=== PATIENT | male | born 1930 | race Caucasian/White ===

== ENCOUNTER 2017-08-08 08:05 | Observation (INO) | payer MEDICARE ==
[~2017-08-08] VITALS: Ht 175.3 cm; Wt 73.8 kg
[~2017-08-08 08:05] MED LIST: AEC81 PO; AMIODARONE HCL 150 MG in DEXTROSE 5%-WATER 100 ML IV SCH; AMIODARONE HCL 900 MG in DEXTROSE 5%-WATER 500 ML IV NR; ATOR10 PO; CARV25TA PO; CHOL100040 PO; DRON400T2 PO; FURO20TA4 PO; MIDO5TAB PO; OMEP20TA25 PO; SERT100T12 PO; WARF-57 PO
[2017-08-08] MEDS ORDERED: AMIODARONE HCL 900 MG in DEXTROSE 5%-WATER 500 ML IV NR (08:55)
[2017-08-08 08:56] LABS: EOSINOPHILS % (AUTO) 5.1 % (0.0-8.0); HEMATOCRIT 33.5 % (42-54); LYMPHOCYTES % (AUTO) 11.3 % (21.0-51.0); MEAN CORPUSCULAR HEMOGLOBIN 30.8 pg (27.0-33.0); MEAN CORPUSCULAR HGB CONC 32.7 g/dL (32.0-36.0); MEAN CORPUSCULAR VOLUME 94.1 fL (79-99); NEUTROPHILS % (AUTO) 80.6 % (40.0-77.0); PLATELET COUNT (AUTO) 341 K/uL (130-400); RED BLOOD CELL COUNT(AUTO) 3.55 MIL/uL (4.50-6.20); WHITE BLOOD COUNT (AUTO) 10.1 K/uL (4.8-10.8)
[2017-08-08 09:02] LABS: CREATININE 1.4 mg/dL (0.5-1.5); POTASSIUM 3.5 mmol/L (3.5-5.1)
[2017-08-08 09:05] LABS: PARTIAL THROMBOPLASTIN TIME 47.1 SEC (26.3-35.5)
[2017-08-08 09:08] LABS: INR 4.01 (0.85-1.15)
[2017-08-08 09:13] LABS: ALBUMIN 2.8 g/dL (3.5-5.0); BILIRUBIN,TOTAL 0.8 mg/dL (0.2-1.0); THYROID STIMULATING HORMONE 4.31 uIU/mL (0.36-3.74); TOTAL PROTEIN, SERUM 6.3 g/dL (6.0-8.3)
[2017-08-08] MEDS ORDERED: SODIUM CHLORIDE 0.9% 10 ML VIAL IVP SCH (09:15)
[2017-08-08] MEDS ORDERED: ZOLPIDEM TARTRATE 5 MG TAB PO PRN (09:15)
[2017-08-08] MEDS ORDERED: ACETAMINOPHEN 325 MG TAB PO PRN ×4 (09:15→10:15)
[2017-08-08] MEDS ORDERED: GUAIFENESIN-DM 200/20 MG 10 ML PO PRN (10:15)
[2017-08-08] MEDS ORDERED: LACTULOSE 20 GM/30 ML UDCUP PO PRN (10:15)
[2017-08-08] MEDS ORDERED: MAG HYDROX/AL HYDROX/SIMETH ES 30 ML SUSP UDCUP PO PRN (10:15)
[2017-08-08] MEDS ORDERED: NITROGLYCERIN 0.4 MG SL TAB SL PRN (10:15)
[2017-08-08] MEDS ORDERED: ONDANSETRON HCL 4 MG/2 ML VIAL IV PRN (10:15)
[2017-08-08] MEDS ORDERED: FAMOTIDINE/PF 20 MG/2 ML VIAL IV SCH (21:00)
[2017-08-08 21:35] VITALS: BP 127/72
[2017-08-09] VITALS (12 sets, daily range): BP systolic 121–147; BP diastolic 59–95
[2017-08-09 04:32] LABS: INR 3.45 (0.85-1.15)
[2017-08-09 04:45] LABS: CREATININE 1.4 mg/dL (0.5-1.5); MAGNESIUM 1.8 mg/dL (1.80-2.40); PHOSPHORUS 2.9 mg/dL (2.5-4.9); POTASSIUM 3.7 mmol/L (3.5-5.1)
[2017-08-09 04:54] LABS: PROTHROMBIN TIME 35.4 SEC (9.6-11.6)
[2017-08-09] MEDS ORDERED: SODIUM CHLORIDE 0.9% 1000ML 1,000 ML IV ONE (08:45)
[2017-11-06] MEDS ORDERED: CARV25TA PO (11:06)
[2017-11-06] MEDS ORDERED: WARF-57 PO (11:06)
[2017-11-06] MEDS ORDERED: WARF2.5T85 PO (11:06)
[2017-11-06] MEDS ORDERED: AMIO200T2 PO (11:06)
== END 2017-08-09 18:00 | disposition home or self-care (01) ==
LOC: EDH 08:05 → EDHIP 08:06 → 2DH 21:27
PROVIDERS: ADMIT Family Medicine; ATTEND Family Medicine
DX: I48.1 Persistent atrial fibrillation (principal); D68.69 Other thrombophilia; Z79.01 Long term (current) use of anticoagulants; I25.10 Atherosclerotic heart disease of native coronary artery without angina pectoris; I10 Essential (primary) hypertension; E78.5 Hyperlipidemia, unspecified; Z82.49 Family history of ischemic heart disease and other diseases of the circulatory system; K21.9 Gastro-esophageal reflux disease without esophagitis; Z95.5 Presence of coronary angioplasty implant and graft; Z95.0 Presence of cardiac pacemaker; Z87.891 Personal history of nicotine dependence
CPT/HCPCS: 36415 ×2; 80048; 80053; 83735; 84100; 84443; 85025; 85610 ×2; 85730; 93005 ×2; 96374; 99285; G0378 ×34; J0282 ×2; J3490; J7030; J7060 ×2

== ENCOUNTER → 2017-11-06 | Outpatient (CLI) | payer MEDICARE ==
[~2017-11-06] VITALS: Ht 177.8 cm; Wt 71.5 kg
[~2017-11-06] MED LIST changes: +AMIO200T5 PO; -AMIODARONE HCL 150 MG in DEXTROSE 5%-WATER 100 ML IV SCH; -AMIODARONE HCL 900 MG in DEXTROSE 5%-WATER 500 ML IV NR; +CEFAZOLIN SODIUM 1 GM VIAL IVP SCH; -DRON400T2 PO; +SODIUM CHLORIDE 0.9% 500ML 500 ML IV SCH; +WARF2.5T85 PO
[2017-11-06 09:35] VITALS: BP 119/67
[2017-11-06 09:52] LABS: BASOPHILS % (AUTO) 0.9 % (0.0-5.0); EOSINOPHILS % (AUTO) 6.5 % (0.0-8.0); HEMATOCRIT 36.6 % (42-54); LYMPHOCYTES % (AUTO) 8.1 % (21.0-51.0); MEAN CORPUSCULAR HEMOGLOBIN 29.7 pg (27.0-33.0); MEAN CORPUSCULAR VOLUME 90.2 fL (79-99); MONOCYTES % (AUTO) 0.8 % (3.0-13.0); NEUTROPHILS % (AUTO) 83.7 % (40.0-77.0); PLATELET COUNT (AUTO) 498 K/uL (130-400); RED BLOOD CELL COUNT(AUTO) 4.05 MIL/uL (4.50-6.20); RED CELL DISTRIBUTION WIDTH 14.7 % (11.0-15.5); WHITE BLOOD COUNT (AUTO) 16.4 K/uL (4.8-10.8)
[2017-11-06 10:02] LABS: CREATININE 1.3 mg/dL (0.5-1.5); POTASSIUM 3.7 mmol/L (3.5-5.1)
[2017-11-06 10:06] LABS: INR 1.86 (0.85-1.15); PARTIAL THROMBOPLASTIN TIME 39.9 SEC (26.3-35.5); PROTHROMBIN TIME 19.3 SEC (9.6-11.6)
== END | disposition home or self-care (01) ==
LOC: DAH 10:00 → EDSTATUS 11-08 09:00
PROVIDERS: ATTEND Internal Medicine Cardiovascular Disease
DX: Z01.818 Encounter for other preprocedural examination (principal); Z45.02 Encounter for adjustment and management of automatic implantable cardiac defibrillator; I25.5 Ischemic cardiomyopathy; R79.1 Abnormal coagulation profile
CPT/HCPCS: 36415; 80048; 85025; 85610; 85730; 93005

== ENCOUNTER → 2017-11-20 | Outpatient (CLI) | payer MEDICARE ==
[~2017-11-20] VITALS: Ht 175.3 cm; Wt 71.8 kg
[~2017-11-20] MED LIST changes: -CEFAZOLIN SODIUM 1 GM VIAL IVP SCH; -CHOL100040 PO; -SODIUM CHLORIDE 0.9% 500ML 500 ML IV SCH
[2017-11-20 08:54] LABS: BASOPHILS % (AUTO) 0.3 % (0.0-5.0); EOSINOPHILS % (AUTO) 2.1 % (0.0-8.0); HEMATOCRIT 35.3 % (42-54); LYMPHOCYTES % (AUTO) 4.2 % (21.0-51.0); MEAN CORPUSCULAR HEMOGLOBIN 29.4 pg (27.0-33.0); MEAN CORPUSCULAR HGB CONC 33.2 g/dL (32.0-36.0); MEAN CORPUSCULAR VOLUME 88.7 fL (79-99); MONOCYTES % (AUTO) 0.2 % (3.0-13.0); NEUTROPHILS % (AUTO) 93.2 % (40.0-77.0); PLATELET COUNT (AUTO) 572 K/uL (130-400); RED BLOOD CELL COUNT(AUTO) 3.98 MIL/uL (4.50-6.20); RED CELL DISTRIBUTION WIDTH 14.4 % (11.0-15.5); WHITE BLOOD COUNT (AUTO) 25.9 K/uL (4.8-10.8)
[2017-11-20 09:01] LABS: CREATININE 1.3 mg/dL (0.5-1.5); POTASSIUM 3.3 mmol/L (3.5-5.1)
[2017-11-20 09:06] LABS: INR 2.07 (0.85-1.15); PARTIAL THROMBOPLASTIN TIME 39.5 SEC (26.3-35.5); PROTHROMBIN TIME 21.4 SEC (9.6-11.6)
[2017-11-20 09:16] VITALS: BP 114/59
== END | disposition home or self-care (01) ==
LOC: EDSTATUS 08:00 → DAH 10:00
PROVIDERS: ATTEND Internal Medicine Cardiovascular Disease
DX: Z45.02 Encounter for adjustment and management of automatic implantable cardiac defibrillator (principal); I25.5 Ischemic cardiomyopathy; I10 Essential (primary) hypertension; E78.5 Hyperlipidemia, unspecified; K21.9 Gastro-esophageal reflux disease without esophagitis
CPT/HCPCS: 36415; 80048; 85025; 85610; 85730

== ENCOUNTER 2017-11-24 17:49 | Inpatient (IN) | payer MEDICARE ==
[~2017-11-24] VITALS: Ht 177.8 cm; Wt 67.9 kg
[2017-11-24 18:08] LABS: BASOPHILS % (AUTO) 0.6 % (0.0-5.0); EOSINOPHILS % (AUTO) 0.5 % (0.0-8.0); HEMATOCRIT 37.5 % (42-54); LYMPHOCYTES % (AUTO) 2.3 % (21.0-51.0); MEAN CORPUSCULAR HEMOGLOBIN 28.9 pg (27.0-33.0); MEAN CORPUSCULAR HGB CONC 32.7 g/dL (32.0-36.0); MEAN CORPUSCULAR VOLUME 88.3 fL (79-99); MONOCYTES % (AUTO) 0.3 % (3.0-13.0); NEUTROPHILS % (AUTO) 96.3 % (40.0-77.0); RED BLOOD CELL COUNT(AUTO) 4.25 MIL/uL (4.50-6.20); RED CELL DISTRIBUTION WIDTH 14.4 % (11.0-15.5)
[2017-11-24 18:14] LABS: PLATELET COUNT (AUTO) 712 K/uL (130-400)
[2017-11-24 18:22] LABS: CREATININE 1.6 mg/dL (0.5-1.5); POTASSIUM 3.8 mmol/L (3.5-5.1)
[2017-11-24 18:34] LABS: LYMPHOCYTES % (MANUAL) 1 % (22-44); PLATELET MORPHOLOGY COMMENT MARKED INCREASED; REACTIVE LYMPHOCYTES 1 % (0-0); SEGMENTED NEUTROPHILS % 98 % (40-70)
[2017-11-24 18:35] LABS: ALBUMIN 2.8 g/dL (3.5-5.0); BILIRUBIN,TOTAL 0.9 mg/dL (0.2-1.0); CREATINE KINASE MB 1.3 ng/mL (0.5-3.6); TOTAL PROTEIN, SERUM 6.9 g/dL (6.0-8.3)
[2017-11-24] MEDS ORDERED: CEFTRIAXONE SODIUM 1 GM ONE (19:28)
[2017-11-24] MEDS ORDERED: SODIUM CHLORIDE 0.9% 50 ML IV ONE (19:28)
[2017-11-24] MEDS ORDERED: LEVOFLOXACIN 500 MG/D5W 100 ML 100 ML ONE (19:28)
[2017-11-24 21:09] LABS: APPEARANCE,URINE Clear (CLEAR); BILIRUBIN,URINE Small (NEGATIVE); COLOR,URINE Dark Yellow (YELLOW); GLUCOSE, URINE (UA) Negative (NEGATIVE); KETONES,URINE Negative (NEGATIVE); LEUKOCYTE ESTERASE ,URINE Negative (NEGATIVE); NITRATE,URINE Negative (NEGATIVE); OCCULT BLOOD,URINE Negative (NEGATIVE); PROTEIN,URINE Negative (NEGATIVE)
[2017-11-24 21:17] LABS: BACTERIA,URINE None Seen /HPF (None Seen); RBC,URINE None Seen /HPF (0-1); SQUAMOUS EPITHELIAL CELL,UR 0-2 /HPF (0-2); WBC,URINE None Seen /HPF (0-1)
[2017-11-24 21:18] LABS: HYALINE CASTS, URINE >100 /LPF (0-1 /LPF)
[2017-11-24] MEDS ORDERED: ACETAMINOPHEN 325 MG TAB PO PRN (21:30)
[2017-11-24 22:00] VITALS: BP 126/81
[2017-11-24] MEDS ORDERED: WARF2.5T85 PO (22:31)
[2017-11-24] MEDS ORDERED: FURO20TA4 PO (22:31)
[2017-11-24 23:33] VITALS: BP 131/68
[2017-11-25 04:02] VITALS: BP 136/70
[2017-11-25 04:36] LABS: HEMATOCRIT 33.8 % (42-54); MEAN CORPUSCULAR HEMOGLOBIN 29.4 pg (27.0-33.0); MEAN CORPUSCULAR HGB CONC 32.8 g/dL (32.0-36.0); MEAN CORPUSCULAR VOLUME 89.5 fL (79-99); PLATELET COUNT (AUTO) 591 K/uL (130-400); RED BLOOD CELL COUNT(AUTO) 3.78 MIL/uL (4.50-6.20); RED CELL DISTRIBUTION WIDTH 14.7 % (11.0-15.5)
[2017-11-25 04:43] LABS: WHITE BLOOD COUNT (AUTO) 37.3 K/uL (4.8-10.8)
[2017-11-25 04:46] LABS: ALBUMIN 2.4 g/dL (3.5-5.0); BILIRUBIN,TOTAL 0.8 mg/dL (0.2-1.0); CREATININE 1.4 mg/dL (0.5-1.5); POTASSIUM 3.8 mmol/L (3.5-5.1); TOTAL PROTEIN, SERUM 6.1 g/dL (6.0-8.3)
[2017-11-25 05:14] LABS: B-TYPE NATRIURETIC PEPTIDE 1770 pg/mL (0-100)
[2017-11-25 07:17] VITALS: BP 134/73
[2017-11-25] MEDS: FUROSEMIDE 10 MG/ML 2ML VIAL IVP SCH (08:06)
[2017-11-25] MEDS: ENOXAPARIN SODIUM 40 MG/0.4 ML SYRINGE SQ SCH (08:06)
[2017-11-25 11:25] VITALS: BP 133/72
[2017-11-25 16:45] VITALS: BP 138/71
[2017-11-25] MEDS ORDERED: CEFTRIAXONE SODIUM 1 GM IVP SCH (18:00)
[2017-11-25] MEDS ORDERED: FUROSEMIDE 10 MG/ML 4ML VIAL IV SCH (18:15)
[2017-11-25] MEDS ORDERED: LEVOFLOXACIN 500 MG/D5W 100 ML 100 ML IV SCH (19:00)
[2017-11-25 20:00] VITALS: BP 131/79
[2017-11-25] MEDS: ATORVASTATIN CALCIUM 20 MG TABLET PO SCH (21:03)
[2017-11-25] MEDS: SERTRALINE HCL 50 MG TABLET PO SCH (21:03)
[2017-11-25] MEDS: CARVEDILOL 12.5 MG TABLET PO SCH (21:07)
[2017-11-25] MEDS: WARFARIN SODIUM 2.5 MG TAB PO SCH (21:08)
[2017-11-25 23:56] VITALS: BP 127/71
[2017-11-26 04:00] VITALS: BP 122/62
[2017-11-26 05:06] LABS: BASOPHILS % (AUTO) 0.2 % (0.0-5.0); EOSINOPHILS % (AUTO) 0.2 % (0.0-8.0); HEMATOCRIT 32.8 % (42-54); LYMPHOCYTES % (AUTO) 1.8 % (21.0-51.0); MEAN CORPUSCULAR HEMOGLOBIN 29.8 pg (27.0-33.0); MEAN CORPUSCULAR HGB CONC 33.5 g/dL (32.0-36.0); MEAN CORPUSCULAR VOLUME 89.1 fL (79-99); MONOCYTES % (AUTO) 0.2 % (3.0-13.0); NEUTROPHILS % (AUTO) 97.6 % (40.0-77.0); PLATELET COUNT (AUTO) 639 K/uL (130-400); RED BLOOD CELL COUNT(AUTO) 3.68 MIL/uL (4.50-6.20); RED CELL DISTRIBUTION WIDTH 14.6 % (11.0-15.5)
[2017-11-26 05:20] LABS: WHITE BLOOD COUNT (AUTO) 40.2 K/uL (4.8-10.8)
[2017-11-26 05:47] LABS: BAND NEUTROPHILS % (MANUAL) 4 % (0-2); LYMPHOCYTES % (MANUAL) 2 % (22-44); MAN.DIFF COMMENT-IMPRESSION MANUAL DIFFERENTIAL; METAMYELOCYTES % 3 % (0-0); MYELOCYTES % 1 % (0-0); PLATELET MORPHOLOGY COMMENT INCREASED; SEGMENTED NEUTROPHILS % 90 % (40-70)
[2017-11-26 06:14] LABS: B-TYPE NATRIURETIC PEPTIDE 1980 pg/mL (0-100)
[2017-11-26] MEDS: FOLIC ACID 1 MG TABLET PO SCH (08:05)
[2017-11-26] MEDS: CARVEDILOL 12.5 MG TABLET PO SCH ×2 (08:05→22:00)
[2017-11-26] MEDS: AMIODARONE HCL 200 MG TABLET PO SCH (08:05)
[2017-11-26] MEDS: ASPIRIN 81 MG EC TAB PO SCH (08:05)
[2017-11-26] MEDS: CYANOCOBALAMIN (VITAMIN B-12) 1,000 MCG TABLET PO SCH (08:05)
[2017-11-26] MEDS: FUROSEMIDE 10 MG/ML 2ML VIAL IVP SCH (08:06)
[2017-11-26] MEDS: ENOXAPARIN SODIUM 40 MG/0.4 ML SYRINGE SQ SCH (08:06)
[2017-11-26 08:15] VITALS: BP 127/74
[2017-11-26 11:38] VITALS: BP 144/71
[2017-11-26] MEDS ORDERED: VANCOMYCIN PROTOCOL PER PHARMACY IV SCH (15:00)
[2017-11-26] MEDS ORDERED: CEFTAZIDIME 1GM+NS 50ML 50 ML IV SCH (15:30)
[2017-11-26] MEDS: CEFTAZIDIME PENTAHYDRATE 1 GM/VIAL IVP SCH (15:41)
[2017-11-26] MEDS: DOXYCYCLINE 100MG+NS 250ML 250 ML IV SCH (15:56)
[2017-11-26 16:41] VITALS: BP 136/79
[2017-11-26 20:03] VITALS: BP 137/70
[2017-11-26] MEDS ORDERED: VANCOMYCIN 1GM+NS 250ML 250 ML IV SCH (21:00)
[2017-11-26] MEDS ORDERED: CEFTRIAXONE SODIUM 1 GM IVP SCH (21:00)
[2017-11-26] MEDS: ATORVASTATIN CALCIUM 20 MG TABLET PO SCH (21:59)
[2017-11-26] MEDS: VANCOMYCIN 1GM+NS 250ML 250 ML IV SCH (21:59)
[2017-11-26] MEDS: SERTRALINE HCL 50 MG TABLET PO SCH (22:00)
[2017-11-26] MEDS: WARFARIN SODIUM 2.5 MG TAB PO SCH (22:00)
[2017-11-27] VITALS (7 sets, daily range): BP systolic 115–130; BP diastolic 56–65
[2017-11-27] MEDS: DOXYCYCLINE 100MG+NS 250ML 250 ML IV SCH ×2 (03:36→14:04)
[2017-11-27] MEDS: CEFTAZIDIME PENTAHYDRATE 1 GM/VIAL IVP SCH ×2 (04:00→16:00)
[2017-11-27 05:13] LABS: HEMATOCRIT 34.4 % (42-54); MEAN CORPUSCULAR HEMOGLOBIN 28.8 pg (27.0-33.0); MEAN CORPUSCULAR HGB CONC 32.8 g/dL (32.0-36.0); PLATELET COUNT (AUTO) 624 K/uL (130-400); RED CELL DISTRIBUTION WIDTH 14.5 % (11.0-15.5)
[2017-11-27 05:18] LABS: WHITE BLOOD COUNT (AUTO) 39.5 K/uL (4.8-10.8)
[2017-11-27 05:26] LABS: ALBUMIN 2.2 g/dL (3.5-5.0); BILIRUBIN,TOTAL 0.8 mg/dL (0.2-1.0); CREATININE 1.2 mg/dL (0.5-1.5)
[2017-11-27 05:36] LABS: BAND NEUTROPHILS % (MANUAL) 3 % (0-2); EOSINOPHILS % (MANUAL) 1 % (1-6); LYMPHOCYTES % (MANUAL) 1 % (22-44); MAN.DIFF COMMENT-IMPRESSION MANUAL DIFFERENTIAL; METAMYELOCYTES % 1 % (0-0); MONOCYTES % (MANUAL) 1 % (2-9); SEGMENTED NEUTROPHILS % 93 % (40-70)
[2017-11-27 05:37] LABS: PLATELET MORPHOLOGY COMMENT INCREASED
[2017-11-27] MEDS ORDERED: POTASSIUM CHLORIDE 20 MEQ ERTAB PO ONE ×2 (07:12→09:25)
[2017-11-27] MEDS: CYANOCOBALAMIN (VITAMIN B-12) 1,000 MCG TABLET PO SCH (07:17)
[2017-11-27] MEDS: FOLIC ACID 1 MG TABLET PO SCH (07:18)
[2017-11-27] MEDS: ASPIRIN 81 MG EC TAB PO SCH (07:18)
[2017-11-27] MEDS: AMIODARONE HCL 200 MG TABLET PO SCH (07:18)
[2017-11-27] MEDS: CARVEDILOL 12.5 MG TABLET PO SCH ×2 (07:18→21:45)
[2017-11-27] MEDS: FUROSEMIDE 10 MG/ML 2ML VIAL IVP SCH (07:18)
[2017-11-27] MEDS: ENOXAPARIN SODIUM 40 MG/0.4 ML SYRINGE SQ SCH (07:18)
[2017-11-27] MEDS ORDERED: DIATR MEGLU/DIATRIZOATE SODIUM 30 ML BOTTLE ONE (10:37)
[2017-11-27] MEDS: IPRATROPIUM/ALBUTEROL SULFATE 3 ML SOLUTION IH SCH ×3 (11:10→23:24)
[2017-11-27] MEDS ORDERED: SODIUM CHLORIDE 3% FOR INHALATION 4 ML/AMP VIAL.NEB IH ONE ×2 (11:25→23:41)
[2017-11-27] MEDS ORDERED: IOPAMIDOL-370 75 ML VIAL IV ONE (13:25)
[2017-11-27] MEDS: VANCOMYCIN 1GM+NS 250ML 250 ML IV SCH (21:43)
[2017-11-27] MEDS: WARFARIN SODIUM 2.5 MG TAB PO SCH (21:44)
[2017-11-27] MEDS: SERTRALINE HCL 50 MG TABLET PO SCH (21:45)
[2017-11-27] MEDS: POTASSIUM CHLORIDE 20 MEQ ERTAB PO PRN (21:53)
[2017-11-27] MEDS ORDERED: POTASSIUM CHLORIDE 10% ELIXIR 20 MEQ/15 ML UDCUP PO PRN (22:00)
[2017-11-28] MEDS: POTASSIUM CHLORIDE 20 MEQ ERTAB PO PRN ×4 (00:37→06:01)
[2017-11-28] MEDS: DOXYCYCLINE 100MG+NS 250ML 250 ML IV SCH ×2 (03:20→16:54)
[2017-11-28] MEDS: CEFTAZIDIME PENTAHYDRATE 1 GM/VIAL IVP SCH ×2 (03:20→16:54)
[2017-11-28 03:34] VITALS: BP 118/57
[2017-11-28 04:09] LABS: HEMATOCRIT 35.4 % (42-54); MEAN CORPUSCULAR HEMOGLOBIN 27.5 pg (27.0-33.0); MEAN CORPUSCULAR HGB CONC 30.7 g/dL (32.0-36.0); MEAN CORPUSCULAR VOLUME 89.5 fL (79-99); PLATELET COUNT (AUTO) 640 K/uL (130-400); RED BLOOD CELL COUNT(AUTO) 3.95 MIL/uL (4.50-6.20); RED CELL DISTRIBUTION WIDTH 14.6 % (11.0-15.5)
[2017-11-28 04:17] LABS: INR 3.26 (0.85-1.15); PROTHROMBIN TIME 33.4 SEC (9.6-11.6)
[2017-11-28 04:20] LABS: CREATININE 1.3 mg/dL (0.5-1.5); POTASSIUM 3.7 mmol/L (3.5-5.1)
[2017-11-28 04:27] LABS: BAND NEUTROPHILS % (MANUAL) 7 % (0-2); EOSINOPHILS % (MANUAL) 1 % (1-6); LYMPHOCYTES % (MANUAL) 3 % (22-44); METAMYELOCYTES % 1 % (0-0); SEGMENTED NEUTROPHILS % 88 % (40-70)
[2017-11-28 04:28] LABS: MAN.DIFF COMMENT-IMPRESSION MANUAL DIFFERENTIAL
[2017-11-28 04:29] LABS: PLATELET MORPHOLOGY COMMENT INCREASED
[2017-11-28 04:30] LABS: WHITE BLOOD COUNT (AUTO) 34.8 K/uL (4.8-10.8)
[2017-11-28] MEDS ORDERED: SODIUM CHLORIDE 3% FOR INHALATION 4 ML/AMP VIAL.NEB IH ONE (05:47)
[2017-11-28] MEDS: IPRATROPIUM/ALBUTEROL SULFATE 3 ML SOLUTION IH SCH ×4 (06:03→23:26)
[2017-11-28 08:07] VITALS: BP 130/71
[2017-11-28] MEDS ORDERED: LISINOPRIL 5 MG TABLET PO SCH (09:15)
[2017-11-28] MEDS: FOLIC ACID 1 MG TABLET PO SCH (09:59)
[2017-11-28] MEDS: AMIODARONE HCL 200 MG TABLET PO SCH (09:59)
[2017-11-28] MEDS: ASPIRIN 81 MG EC TAB PO SCH (09:59)
[2017-11-28] MEDS: CYANOCOBALAMIN (VITAMIN B-12) 1,000 MCG TABLET PO SCH (09:59)
[2017-11-28] MEDS: CARVEDILOL 12.5 MG TABLET PO SCH ×2 (09:59→23:25)
[2017-11-28] MEDS: ENOXAPARIN SODIUM 40 MG/0.4 ML SYRINGE SQ SCH (10:02)
[2017-11-28] MEDS: FUROSEMIDE 10 MG/ML 2ML VIAL IVP SCH (10:02)
[2017-11-28 10:13] LABS: ABG BASE EXCESS -1.3 mmol/L (-2.0-3.0); ABG HCO3 22.7 mmol/L (21.0-28.0); ABG OXYGEN SATURATION 89.3 % (95.0-99.0); ABG PCO2 36 mmHg (35-48)
[2017-11-28 12:06] VITALS: BP 115/59
[2017-11-28 16:00] LABS: HIGH SENSITIVITY CRP 156.36 mg/L (0.0-3.0)
[2017-11-28 16:39] VITALS: BP 117/64
[2017-11-28 19:32] VITALS: BP 129/61
[2017-11-28] MEDS: WARFARIN SODIUM 2.5 MG TAB PO SCH (20:53)
[2017-11-28] MEDS ORDERED: SODIUM CHLORIDE 0.9% 250 ML IV ONE (23:02)
[2017-11-28] MEDS: SERTRALINE HCL 50 MG TABLET PO SCH (23:24)
[2017-11-28] MEDS: VANCOMYCIN 1GM+NS 250ML 250 ML IV SCH (23:24)
[2017-11-28 23:56] VITALS: BP 128/62
[2017-11-29] MEDS: CEFTAZIDIME PENTAHYDRATE 1 GM/VIAL IVP SCH ×2 (03:52→14:59)
[2017-11-29] MEDS: DOXYCYCLINE 100MG+NS 250ML 250 ML IV SCH ×2 (03:55→16:30)
[2017-11-29 04:11] VITALS: BP 119/62
[2017-11-29] MEDS: IPRATROPIUM/ALBUTEROL SULFATE 3 ML SOLUTION IH SCH ×4 (06:09→23:26)
[2017-11-29 08:21] VITALS: BP 120/69
[2017-11-29 08:27] LABS: INR 3.84 (0.85-1.15); PROTHROMBIN TIME 39.3 SEC (9.6-11.6)
[2017-11-29] MEDS: ENOXAPARIN SODIUM 40 MG/0.4 ML SYRINGE SQ SCH (09:00)
[2017-11-29] MEDS: AMIODARONE HCL 200 MG TABLET PO SCH (09:55)
[2017-11-29] MEDS: FOLIC ACID 1 MG TABLET PO SCH (09:55)
[2017-11-29] MEDS: ASPIRIN 81 MG EC TAB PO SCH (09:55)
[2017-11-29] MEDS: CYANOCOBALAMIN (VITAMIN B-12) 1,000 MCG TABLET PO SCH (09:55)
[2017-11-29] MEDS: CARVEDILOL 12.5 MG TABLET PO SCH ×2 (09:55→23:44)
[2017-11-29] MEDS: LISINOPRIL 5 MG TABLET PO SCH (09:55)
[2017-11-29] MEDS: FUROSEMIDE 10 MG/ML 2ML VIAL IVP SCH (10:02)
[2017-11-29 12:18] VITALS: BP 112/60
[2017-11-29] MEDS ORDERED: FUROSEMIDE 10 MG/ML 4ML VIAL ONE (13:36)
[2017-11-29] MEDS: FUROSEMIDE 10 MG/ML 4ML VIAL IV SCH ×2 (13:41→21:42)
[2017-11-29] MEDS ORDERED: FLUCONAZOLE 200 MG/NS 100 ML 100 ML IV SCH (15:00)
[2017-11-29 16:00] VITALS: BP 128/68
[2017-11-29 19:31] VITALS: BP 131/71
[2017-11-29] MEDS ORDERED: COMPOUND IV REFRIGERATED 1 EACH IVSOLN MISC PRN (20:15)
[2017-11-29] MEDS: VANCOMYCIN 1.25 GM in SODIUM CHLORIDE 0.9% 250 ML IV SCH (21:43)
[2017-11-29] MEDS: FAMOTIDINE 20MG TAB 20 MG TAB PO SCH (21:53)
[2017-11-29] MEDS: SERTRALINE HCL 50 MG TABLET PO SCH (21:53)
[2017-11-29 23:40] VITALS: BP 130/71
[2017-11-30] MEDS: DOXYCYCLINE 100MG+NS 250ML 250 ML IV SCH ×3 (03:41→21:07)
[2017-11-30] MEDS: CEFTAZIDIME PENTAHYDRATE 1 GM/VIAL IVP SCH ×2 (03:41→15:15)
[2017-11-30 03:50] VITALS: BP 131/59
[2017-11-30 04:19] LABS: HEMATOCRIT 35.3 % (42-54); MEAN CORPUSCULAR HEMOGLOBIN 29.3 pg (27.0-33.0); MEAN CORPUSCULAR HGB CONC 33.1 g/dL (32.0-36.0); MEAN CORPUSCULAR VOLUME 88.4 fL (79-99); NUCLEATED RED BLOOD CELLS 0.1 % (0.0-0.19); PLATELET COUNT (AUTO) 652 K/uL (130-400); RED BLOOD CELL COUNT(AUTO) 3.99 MIL/uL (4.50-6.20); RED CELL DISTRIBUTION WIDTH 14.4 % (11.0-15.5)
[2017-11-30 04:23] LABS: WHITE BLOOD COUNT (AUTO) 53.7 K/uL (4.8-10.8)
[2017-11-30 04:33] LABS: PARTIAL THROMBOPLASTIN TIME 48.1 SEC (26.3-35.5)
[2017-11-30 04:33] LABS: ABG BASE EXCESS 0.3 mmol/L (-2.0-3.0); ABG HCO3 24.1 mmol/L (21.0-28.0); ABG PCO2 37 mmHg (35-48)
[2017-11-30 04:40] LABS: BAND NEUTROPHILS % (MANUAL) 4 % (0-2); LYMPHOCYTES % (MANUAL) 1 % (22-44); MONOCYTES % (MANUAL) 2 % (2-9); SEGMENTED NEUTROPHILS % 93 % (40-70)
[2017-11-30 04:41] LABS: MAN.DIFF COMMENT-IMPRESSION MANUAL DIFFERENTIAL
[2017-11-30 04:42] LABS: ALBUMIN 2.2 g/dL (3.5-5.0); BILIRUBIN,TOTAL 0.8 mg/dL (0.2-1.0); CREATININE 1.5 mg/dL (0.5-1.5); MAGNESIUM 1.9 mg/dL (1.80-2.40); PLATELET MORPHOLOGY COMMENT MARKED INCREASED; POTASSIUM 3.7 mmol/L (3.5-5.1); THYROID STIMULATING HORMONE 2.63 uIU/mL (0.36-3.74); TOTAL PROTEIN, SERUM 6.2 g/dL (6.0-8.3)
[2017-11-30 04:47] LABS: INR 3.88 (0.85-1.15); PROTHROMBIN TIME 39.7 SEC (9.6-11.6)
[2017-11-30] MEDS: IPRATROPIUM/ALBUTEROL SULFATE 3 ML SOLUTION IH SCH ×4 (06:17→23:35)
[2017-11-30] MEDS ORDERED: POTASSIUM CHLORIDE 10 MEQ/TAB.SA PO ONE ×2 (06:26→06:27)
[2017-11-30] MEDS: FUROSEMIDE 10 MG/ML 4ML VIAL IV SCH ×2 (06:47→15:00)
[2017-11-30 07:00] VITALS: BP 145/71
[2017-11-30] MEDS: FLUCONAZOLE 200 MG/NS 100 ML 100 ML IV SCH (08:51)
[2017-11-30] MEDS: FAMOTIDINE 20MG TAB 20 MG TAB PO SCH ×3 (08:54→21:00)
[2017-11-30] MEDS: FOLIC ACID 1 MG TABLET PO SCH ×2 (08:54→09:00)
[2017-11-30] MEDS: LISINOPRIL 5 MG TABLET PO SCH ×2 (08:54→09:00)
[2017-11-30] MEDS: CYANOCOBALAMIN (VITAMIN B-12) 1,000 MCG TABLET PO SCH ×2 (08:54→09:00)
[2017-11-30] MEDS: ASPIRIN 81 MG EC TAB PO SCH ×2 (08:54→09:00)
[2017-11-30] MEDS: AMIODARONE HCL 200 MG TABLET PO SCH ×2 (08:54→09:00)
[2017-11-30] MEDS: CARVEDILOL 12.5 MG TABLET PO SCH (08:55)
[2017-11-30 11:00] VITALS: BP 129/56
[2017-11-30 16:00] VITALS: BP 125/59
[2017-11-30] MEDS ORDERED: MAGNESIUM 2GM PREMIX 50ML 50 ML IV SCH (16:45)
[2017-11-30] MEDS ORDERED: METHYLPREDNISOLONE SOD SUCC 40MG/ML 1ML IVP SCH (16:45)
[2017-11-30 19:43] VITALS: BP 121/55
[2017-11-30] MEDS: FUROSEMIDE 100 MG in SODIUM CHLORIDE 0.9% 90 ML IV SCH (20:46)
[2017-11-30] MEDS: DOBUTAMINE 250MG/D5 250ML 250 ML IV SCH (20:48)
[2017-11-30] MEDS: SERTRALINE HCL 50 MG TABLET PO SCH (21:00)
[2017-11-30] MEDS: OSELTAMIVIR PHOSPHATE 75 MG CAP PO SCH (21:00)
[2017-11-30] MEDS: CARVEDILOL 3.125 MG TABLET PO SCH (21:00)
[2017-11-30] MEDS: VANCOMYCIN 1.25 GM in SODIUM CHLORIDE 0.9% 250 ML IV SCH (21:08)
[2017-11-30] MEDS: METHYLPREDNISOLONE SOD SUCC 40MG/ML 1ML IVP SCH (21:10)
[2017-11-30 23:33] VITALS: BP 109/53
[2017-12-01] VITALS (9 sets, daily range): BP systolic 98–128; BP diastolic 48–84
[2017-12-01 04:34] LABS: CREATININE 1.4 mg/dL (0.5-1.5); MAGNESIUM 2.3 mg/dL (1.80-2.40); PHOSPHORUS 3.6 mg/dL (2.5-4.9); TOTAL PROTEIN, SERUM 5.9 g/dL (6.0-8.3)
[2017-12-01 04:35] LABS: POTASSIUM 2.4 mmol/L (3.5-5.1)
[2017-12-01] MEDS: CEFTAZIDIME PENTAHYDRATE 1 GM/VIAL IVP SCH ×2 (04:47→16:50)
[2017-12-01] MEDS: POTASSIUM CHLORIDE 20MEQ/100ML 100 ML IV PRN ×4 (04:54→14:26)
[2017-12-01] MEDS: METHYLPREDNISOLONE SOD SUCC 40MG/ML 1ML IVP SCH ×3 (04:54→22:18)
[2017-12-01 05:11] LABS: HEMATOCRIT 35.8 % (42-54); MEAN CORPUSCULAR HEMOGLOBIN 28.6 pg (27.0-33.0); MEAN CORPUSCULAR HGB CONC 32.1 g/dL (32.0-36.0); MEAN CORPUSCULAR VOLUME 88.9 fL (79-99); PLATELET COUNT (AUTO) 546 K/uL (130-400); RED BLOOD CELL COUNT(AUTO) 4.02 MIL/uL (4.50-6.20); RED CELL DISTRIBUTION WIDTH 14.4 % (11.0-15.5)
[2017-12-01] MEDS: IPRATROPIUM/ALBUTEROL SULFATE 3 ML SOLUTION IH SCH ×4 (06:10→23:18)
[2017-12-01] MEDS: CARVEDILOL 3.125 MG TABLET PO SCH ×3 (09:00→20:33)
[2017-12-01] MEDS: LISINOPRIL 5 MG TABLET PO SCH (09:00)
[2017-12-01] MEDS: FAMOTIDINE 20MG TAB 20 MG TAB PO SCH ×3 (09:00→20:33)
[2017-12-01] MEDS: ASPIRIN 81 MG EC TAB PO SCH ×2 (09:00→09:09)
[2017-12-01] MEDS: CYANOCOBALAMIN (VITAMIN B-12) 1,000 MCG TABLET PO SCH (09:00)
[2017-12-01] MEDS: FOLIC ACID 1 MG TABLET PO SCH (09:00)
[2017-12-01] MEDS: OSELTAMIVIR PHOSPHATE 75 MG CAP PO SCH ×3 (09:00→20:33)
[2017-12-01] MEDS: DOXYCYCLINE 100MG+NS 250ML 250 ML IV SCH ×2 (09:04→20:02)
[2017-12-01] MEDS: FLUCONAZOLE 200 MG/NS 100 ML 100 ML IV SCH (09:04)
[2017-12-01] MEDS: AMIODARONE HCL 200 MG TABLET PO SCH (09:09)
[2017-12-01] MEDS: DOBUTAMINE 250MG/D5 250ML 250 ML IV SCH (13:23)
[2017-12-01] MEDS: FUROSEMIDE 100 MG in SODIUM CHLORIDE 0.9% 90 ML IV SCH (14:26)
[2017-12-01 17:42] LABS: ABG BASE EXCESS 5.6 mmol/L (-2.0-3.0); ABG HCO3 29.4 mmol/L (21.0-28.0); ABG OXYGEN SATURATION 96.5 % (95.0-99.0); ABG PCO2 40 mmHg (35-48)
[2017-12-01] MEDS: VANCOMYCIN 1.25 GM in SODIUM CHLORIDE 0.9% 250 ML IV SCH (20:31)
[2017-12-01] MEDS: SERTRALINE HCL 50 MG TABLET PO SCH (20:33)
[2017-12-02] VITALS (24 sets, daily range): BP systolic 89–145; BP diastolic 50–93
[2017-12-02] MEDS: FUROSEMIDE 100 MG in SODIUM CHLORIDE 0.9% 90 ML IV SCH ×2 (02:45→22:24)
[2017-12-02 04:10] LABS: HEMATOCRIT 35.9 % (42-54); MEAN CORPUSCULAR HEMOGLOBIN 29.2 pg (27.0-33.0); MEAN CORPUSCULAR HGB CONC 32.9 g/dL (32.0-36.0); MEAN CORPUSCULAR VOLUME 88.6 fL (79-99); PLATELET COUNT (AUTO) 559 K/uL (130-400); RED BLOOD CELL COUNT(AUTO) 4.05 MIL/uL (4.50-6.20); RED CELL DISTRIBUTION WIDTH 14.5 % (11.0-15.5)
[2017-12-02 04:16] LABS: WHITE BLOOD COUNT (AUTO) 50.4 K/uL (4.8-10.8)
[2017-12-02 04:20] LABS: CREATININE 1.6 mg/dL (0.5-1.5); MAGNESIUM 2.1 mg/dL (1.80-2.40)
[2017-12-02] MEDS: CEFTAZIDIME PENTAHYDRATE 1 GM/VIAL IVP SCH ×2 (04:28→15:49)
[2017-12-02 04:32] LABS: PROTHROMBIN TIME 40.8 SEC (9.6-11.6)
[2017-12-02 04:33] LABS: INR 3.99 (0.85-1.15); POTASSIUM 2.4 mmol/L (3.5-5.1)
[2017-12-02] MEDS: POTASSIUM CHLORIDE 20MEQ/100ML 100 ML IV PRN ×4 (04:43→21:42)
[2017-12-02 04:47] LABS: BAND NEUTROPHILS % (MANUAL) 6 % (0-2); LYMPHOCYTES % (MANUAL) 2 % (22-44); MAN.DIFF COMMENT-IMPRESSION MANUAL DIFFERENTIAL; MONOCYTES % (MANUAL) 3 % (2-9); SEGMENTED NEUTROPHILS % 89 % (40-70)
[2017-12-02 04:48] LABS: PLATELET MORPHOLOGY COMMENT SLIGHT INCREASED
[2017-12-02] MEDS: METHYLPREDNISOLONE SOD SUCC 40MG/ML 1ML IVP SCH ×3 (06:24→21:11)
[2017-12-02] MEDS: IPRATROPIUM/ALBUTEROL SULFATE 3 ML SOLUTION IH SCH ×4 (06:58→23:15)
[2017-12-02] MEDS: FLUCONAZOLE 200 MG/NS 100 ML 100 ML IV SCH (08:02)
[2017-12-02] MEDS: DOXYCYCLINE 100MG+NS 250ML 250 ML IV SCH ×2 (08:02→21:11)
[2017-12-02] MEDS: ASPIRIN 81 MG EC TAB PO SCH (08:03)
[2017-12-02] MEDS: CARVEDILOL 3.125 MG TABLET PO SCH ×2 (08:03→21:10)
[2017-12-02] MEDS: AMIODARONE HCL 200 MG TABLET PO SCH (08:03)
[2017-12-02] MEDS: FOLIC ACID 1 MG TABLET PO SCH (08:03)
[2017-12-02] MEDS: FAMOTIDINE 20MG TAB 20 MG TAB PO SCH ×2 (08:03→21:10)
[2017-12-02] MEDS: CYANOCOBALAMIN (VITAMIN B-12) 1,000 MCG TABLET PO SCH (08:03)
[2017-12-02] MEDS: OSELTAMIVIR PHOSPHATE 75 MG CAP PO SCH ×2 (08:04→21:10)
[2017-12-02] MEDS: LISINOPRIL 5 MG TABLET PO SCH (08:04)
[2017-12-02] MEDS ORDERED: SODIUM CHLORIDE 0.9% 250 ML IV ONE (12:54)
[2017-12-02] MEDS ORDERED: METOPROLOL TARTRATE 1 MG/ML 5ML VIAL IV PRN ×2 (17:00)
[2017-12-02] MEDS: VANCOMYCIN 1.25 GM in SODIUM CHLORIDE 0.9% 250 ML IV SCH (20:45)
[2017-12-02] MEDS: SERTRALINE HCL 50 MG TABLET PO SCH (21:11)
[2017-12-03] VITALS (31 sets, daily range): BP systolic 98–140; BP diastolic 46–80
[2017-12-03 04:12] LABS: BASOPHILS % (AUTO) 0.2 % (0.0-5.0); HEMATOCRIT 36.9 % (42-54); LYMPHOCYTES % (AUTO) 0.9 % (21.0-51.0); MEAN CORPUSCULAR HEMOGLOBIN 28.6 pg (27.0-33.0); MEAN CORPUSCULAR HGB CONC 32.1 g/dL (32.0-36.0); MONOCYTES % (AUTO) 0.2 % (3.0-13.0); NEUTROPHILS % (AUTO) 98.7 % (40.0-77.0); PLATELET COUNT (AUTO) 494 K/uL (130-400); RED BLOOD CELL COUNT(AUTO) 4.15 MIL/uL (4.50-6.20); RED CELL DISTRIBUTION WIDTH 14.8 % (11.0-15.5)
[2017-12-03 04:14] LABS: WHITE BLOOD COUNT (AUTO) 44.9 K/uL (4.8-10.8)
[2017-12-03] MEDS: CEFTAZIDIME PENTAHYDRATE 1 GM/VIAL IVP SCH (04:18)
[2017-12-03] MEDS: DOBUTAMINE 250MG/D5 250ML 250 ML IV SCH (04:25)
[2017-12-03 04:34] LABS: BAND NEUTROPHILS % (MANUAL) 3 % (0-2); EOSINOPHILS % (MANUAL) 1 % (1-6); LYMPHOCYTES % (MANUAL) 3 % (22-44); METAMYELOCYTES % 2 % (0-0); SEGMENTED NEUTROPHILS % 91 % (40-70)
[2017-12-03 04:35] LABS: MAN.DIFF COMMENT-IMPRESSION MANUAL DIFFERENTIAL
[2017-12-03 04:36] LABS: PLATELET MORPHOLOGY COMMENT ADEQUATE
[2017-12-03 04:42] LABS: CREATININE 1.8 mg/dL (0.5-1.5)
[2017-12-03 04:48] LABS: POTASSIUM 2.8 mmol/L (3.5-5.1)
[2017-12-03] MEDS: POTASSIUM CHLORIDE 20MEQ/100ML 100 ML IV PRN ×2 (05:01→08:16)
[2017-12-03] MEDS: METHYLPREDNISOLONE SOD SUCC 40MG/ML 1ML IVP SCH (05:56)
[2017-12-03] MEDS: IPRATROPIUM/ALBUTEROL SULFATE 3 ML SOLUTION IH SCH ×3 (06:16→18:14)
[2017-12-03] MEDS: DOXYCYCLINE 100MG+NS 250ML 250 ML IV SCH (08:15)
[2017-12-03] MEDS: FLUCONAZOLE 200 MG/NS 100 ML 100 ML IV SCH (08:16)
[2017-12-03] MEDS: FOLIC ACID 1 MG TABLET PO SCH (08:16)
[2017-12-03] MEDS: OSELTAMIVIR PHOSPHATE 75 MG CAP PO SCH (08:16)
[2017-12-03] MEDS: CARVEDILOL 3.125 MG TABLET PO SCH (08:17)
[2017-12-03] MEDS: ASPIRIN 81 MG EC TAB PO SCH (08:17)
[2017-12-03] MEDS: LISINOPRIL 5 MG TABLET PO SCH (08:17)
[2017-12-03] MEDS: CYANOCOBALAMIN (VITAMIN B-12) 1,000 MCG TABLET PO SCH (08:17)
[2017-12-03] MEDS: AMIODARONE HCL 200 MG TABLET PO SCH (08:17)
[2017-12-03] MEDS: FAMOTIDINE 20MG TAB 20 MG TAB PO SCH (08:17)
[2017-12-03] MEDS ORDERED: MORPHINE SULFATE 2 MG/ML 1ML SYG IVP PRN ×2 (10:00→15:15)
[2017-12-03] MEDS ORDERED: LORAZEPAM 2 MG/ML 1 ML VIAL IVP PRN (15:15)
[2017-12-04] MEDS: IPRATROPIUM/ALBUTEROL SULFATE 3 ML SOLUTION IH SCH ×3 (00:30→11:22)
[2017-12-04 03:40] VITALS: BP 105/66
[2017-12-04] MEDS ORDERED: MORPHINE SULFATE 4 MG/1ML SYG ONE (08:30)
[2017-12-04 08:38] VITALS: BP 90/51
[2017-12-04 11:54] VITALS: BP 78/40
[2017-12-04 19:21] VITALS: BP 95/56
[2017-12-04 23:44] VITALS: BP 92/45
[2017-12-05 03:40] VITALS: BP 85/38
== END 2017-12-04 15:59 | disposition hospice, inpatient (51) | DRG 871 ==
LOC: EDH 17:49 → EDHIP 19:50 → 2AH 20:59 → 2CH 12-01 19:40 → 3BH 12-03 22:07
PROVIDERS: ADMIT Internal Medicine Nephrology; ATTEND Internal Medicine Nephrology
PROC: 5A09457 Assistance with Respiratory Ventilation, 24-96 Consecutive Hours, Continuous Positive Airway Pressure (ICD-10-PCS; principal; 2017-11-29)
PROC: 5A09457 Assistance with Respiratory Ventilation, 24-96 Consecutive Hours, Continuous Positive Airway Pressure (ICD-10-PCS; 2017-12-01)
DX: A41.9 Sepsis, unspecified organism (principal); J18.9 Pneumonia, unspecified organism; I50.43 Acute on chronic combined systolic (congestive) and diastolic (congestive) heart failure; J96.21 Acute and chronic respiratory failure with hypoxia; N17.9 Acute kidney failure, unspecified; I13.0 Hypertensive heart and chronic kidney disease with heart failure and stage 1 through stage 4 chronic kidney disease, or unspecified chronic kidney disease; I42.9 Cardiomyopathy, unspecified; R64 Cachexia; E46 Unspecified protein-calorie malnutrition; E87.0 Hyperosmolality and hypernatremia; D53.9 Nutritional anemia, unspecified; I25.10 Atherosclerotic heart disease of native coronary artery without angina pectoris; J84.10 Pulmonary fibrosis, unspecified; D72.823 Leukemoid reaction; D69.6 Thrombocytopenia, unspecified; E11.22 Type 2 diabetes mellitus with diabetic chronic kidney disease; E78.00 Pure hypercholesterolemia, unspecified; E78.5 Hyperlipidemia, unspecified; E87.6 Hypokalemia; I25.5 Ischemic cardiomyopathy; I34.0 Nonrheumatic mitral (valve) insufficiency; I48.2 Chronic atrial fibrillation; K59.00 Constipation, unspecified; N18.9 Chronic kidney disease, unspecified; Z51.5 Encounter for palliative care; Z66 Do not resuscitate; Z68.21 Body mass index [BMI] 21.0-21.9, adult; Z87.891 Personal history of nicotine dependence; Z95.0 Presence of cardiac pacemaker; Z95.1 Presence of aortocoronary bypass graft; Z95.3 Presence of xenogenic heart valve; Z95.810 Presence of automatic (implantable) cardiac defibrillator; Z82.49 Family history of ischemic heart disease and other diseases of the circulatory system
CPT/HCPCS: 36415; 36600; 71045; 71250; 74170; 80048; 80053; 80202; 80339; 81001; 81003; 82550; 82553; 82803; 83605; 83735; 83880; 84100; 84132; 84443; 84484; 85025; 85027; 85610; 85651; 85730; 86141; 87040; 87071; 87106; 87205; 87324; 87507; 87633; 93005; 93306; 94640; 94660; 94664; 99291; A4218; A4344; A6234; J0696; J0713; J1250; J1450; J1650; J1940; J1956; J2270; J2920; J3370; J3475; J3480; J3490; J7030; Q9963; Q9967

== ENCOUNTER 2017-12-04 16:00 | Inpatient (IN) | payer OTHER ==
[~2017-12-04 16:00] MED LIST changes: -WARF-57 PO
[2017-12-04 16:52] VITALS: BP 77/49
[2017-12-04] MEDS ORDERED: LORAZEPAM 2 MG/ML 1 ML VIAL IVP PRN (17:45)
[2017-12-04] MEDS ORDERED: ONDANSETRON HCL 4 MG/2 ML VIAL IVP PRN (17:45)
[2017-12-04] MEDS ORDERED: ALBUTEROL SULFATE 0.083% 2.5 MG/3 ML INH IH PRN (17:45)
[2017-12-04] MEDS ORDERED: MORPHINE SULFATE 2 MG/ML 1ML SYG IVP PRN (17:45)
[2017-12-04] MEDS ORDERED: GLYCOPYRROLATE 0.2 MG/ML 5 ML VIAL IVP PRN (17:45)
[2017-12-04] MEDS ORDERED: BISACODYL 10 MG SUPP.RECT RC PRN (17:45)
[2017-12-04] MEDS ORDERED: ACETAMINOPHEN 650 MG SUPPOSITORY RC PRN (17:45)
[2017-12-04] MEDS ORDERED: GLYCOPYRROLATE 1 MG/5 ML SYRINGE IV PRN (20:36)
[2017-12-04] MEDS ORDERED: MORPHINE SULFATE 4 MG/1ML SYG ONE (21:35)
[2017-12-05 08:00] VITALS: BP 78/40
== END 2017-12-05 12:20 | disposition expired | DRG 682 ==
LOC: 3BH 16:00 → UNDOADMIN 16:46 → 3BH 16:46
PROVIDERS: ADMIT Internal Medicine Critical Care Medicine; ATTEND Internal Medicine Critical Care Medicine
DX: N17.9 Acute kidney failure, unspecified (principal); I50.23 Acute on chronic systolic (congestive) heart failure; J18.9 Pneumonia, unspecified organism; I38 Endocarditis, valve unspecified; E87.0 Hyperosmolality and hypernatremia; R64 Cachexia; I42.9 Cardiomyopathy, unspecified; M19.90 Unspecified osteoarthritis, unspecified site; M62.50 Muscle wasting and atrophy, not elsewhere classified, unspecified site; N18.9 Chronic kidney disease, unspecified; Z51.5 Encounter for palliative care; R62.7 Adult failure to thrive; J84.10 Pulmonary fibrosis, unspecified; D72.823 Leukemoid reaction; Z95.2 Presence of prosthetic heart valve
CPT/HCPCS: J2060; J2270; J2405